=== PATIENT | male | born 1960 | race Caucasian/White ===

== ENCOUNTER → 2018-01-28 | Outpatient (CLI) | payer BC ==
[~2018-01-28] MED LIST: ALIS150T3 PO; AMI200 PO; ASP81 PO; CARVEDILOL PO; CELE-1 PO; CEP500 PO; CLO5 PO; CLON-393 PO; CLON1 PO; DIAZ-305 PO; DILT120C72 PO; DOC100 PO; ENOX60DI8 SQ; ESCI10TA8 PO; FAM20 PO; FLE100 PO; FURO-47 PO; HCTZ25; HCTZ25 PO; HYDR-2963 PO; HYDR-2966 PO; IBU600 PO; IRO150 PO; LISI-374 PO; LOR1 PO; LOSA100T68 PO; LOSA50TA72 PO; METO-231 PO; METO-253 PO; METO-259 PO; METO100T20 PO; PER PO; PERCOCET PO; POTA-1 PO; POTA20TA85 PO; SOT80 PO; SPI25; VER40 PO; WAR5 PO; WARF5TAB23 PO; [UNRECOGNIZED DRUG - OTHER]
[2018-01-28 13:45] LABS: INR 1.21
== END ==
LOC: LAB 13:22
PROVIDERS: ATTEND Internal Medicine
DX: I48.91 Unspecified atrial fibrillation (principal); I10 Essential (primary) hypertension; E87.6 Hypokalemia; I71.2 Thoracic aortic aneurysm, without rupture
CPT/HCPCS: 36415; 82040; 82247; 82310; 82374; 82435; 82565; 82947; 83735; 84075; 84132; 84155; 84295; 84450; 84460; 84520; 85610

== ENCOUNTER → 2018-04-14 | Outpatient (CLI) | payer BC ==
[~2018-04-14] MED LIST changes: +METO200T12 PO
--- NOTE | 2018-04-14 15:02 | EKG ---
FACILITY: [facility] - [place] PATIENT NAME: JUSTICE RITCHIE : [id number] MR: [id number] V: [id number] EXAM DATE: ORDERING PHYSICIAN: NADIYA SALEH TECHNOLOGIST: AROLDO /BEVERLY Test Reason : A FIB Blood Pressure : / mmHG Vent. Rate : 100 BPM Atrial Rate : 125 BPM P-R Int : 000 ms QRS Dur : 106 ms QT Int : 316 ms P-R-T Axes : 000 077 258 degrees QTc Int : 407 ms Atrial fibrillation Voltage criteria for left ventricular hypertrophy ST and T wave abnormality, consider inferolateral ischemia Abnormal ECG When compared with ECG of 12-JUN-2017 02:12, Significant changes have occurred Referred By: DELFINO Confirmed By:
== END ==
LOC: LAB 14:41
PROVIDERS: ATTEND Internal Medicine
DX: R94.31 Abnormal electrocardiogram [ECG] [EKG] (principal); I71.2 Thoracic aortic aneurysm, without rupture; I48.91 Unspecified atrial fibrillation; E87.6 Hypokalemia
CPT/HCPCS: 36415; 82040; 82247; 82310; 82374; 82435; 82565; 82947; 83735; 84075; 84132; 84155; 84295; 84450; 84460; 84520

== ENCOUNTER → 2018-05-04 | Outpatient (CLI) | payer BC ==
[2018-05-04 16:08] LABS: INR 5.19
== END ==
LOC: LAB 15:18
PROVIDERS: ATTEND Internal Medicine Clinical Cardiac Electrophysiology
DX: Z51.81 Encounter for therapeutic drug level monitoring (principal); Z79.01 Long term (current) use of anticoagulants; I48.1 Persistent atrial fibrillation
CPT/HCPCS: 36415; 85610

== ENCOUNTER → 2018-05-10 | Outpatient (CLI) | payer BC ==
[~2018-05-10] MED LIST changes: +FLUT16SP19 NS
[2018-05-10 15:16] LABS: INR 1.78
== END ==
LOC: LAB 14:23
PROVIDERS: ATTEND Internal Medicine
DX: I48.0 Paroxysmal atrial fibrillation (principal); I10 Essential (primary) hypertension; I71.8 Aortic aneurysm of unspecified site, ruptured; H91.91 Unspecified hearing loss, right ear
CPT/HCPCS: 36415; 82040; 82247; 82310; 82374; 82435; 82565; 82947; 83735; 84075; 84132; 84155; 84295; 84450; 84460; 84520; 85610

== ENCOUNTER → 2018-05-14 | Outpatient (CLI) | payer BC ==
--- NOTE | 2018-05-14 17:39 | RADIOLOGY IMAGING REPORT ---
FACILITY: [facility] - [place] PATIENT NAME: Tuan Lambert : 1960 MR: [id number] V: [id number] EXAM DATE: ORDERING PHYSICIAN: MADISON DONALDSON TECHNOLOGIST: Location: [facility] - [place], [place] Patient: Tuan Lambert : 1960 Visit/Account:[id number] Date of Sevice: 05/14/2018 EXAMINATION: Right wrist 3 views HISTORY: Right wrist/hand mass (base of thumb) COMPARISON: None. FINDINGS: Bones of the right wrist demonstrate normal alignment. No evidence of fracture or dislocation. Moderate degenerative changes at the first CMC joint at the base of the thumb, with joint space narro wing and osteophyte formation. Joint spaces are otherwise preserved. Normal mineralization. Soft tissues are radiographically unremarkable. No abnormal soft tissue calcification. IMPRESSION: 1. No acute osseous findings about the right wrist. 2. Moderate degenerative changes at the first CMC joint. 3. No radiographic findings to correlate with a reported palpable mass. If there is continued clinica l concern for a soft tissue mass, MRI could be performed for further evaluation. Report Dictated By: Emanuel Yao MD at 05/14/2018 5:29 PM Report E-Signed By: Emanuel Yao MD at 05/14/2018 5:36 PM WSN:[id number]
== END ==
LOC: RAD 16:40
PROVIDERS: ATTEND Family Medicine
DX: M24.141 Other articular cartilage disorders, right hand (principal)

== ENCOUNTER 2018-05-17 06:57 | Emergency (ER) | payer BC ==
--- NOTE | 2018-05-17 07:05 | ER Report ---
History and Physical Time Seen By MD: 07:04 HPI/ROS CHIEF COMPLAINT: Chest pain HISTORY OF PRESENT ILLNESS: Patient is a 58-year-old male who presents to the emergency department with clean of chest pain that began earlier this past week. Pain was much worse over the weekend. He has a history of aortic valve repair with his own natural tissue his aortic valve is bicuspid. He also has history of any aortic thoracic aneurysm that was repaired in 2009. Apparently IN 2017 he found out the aortic valve was leaking and he has a new thoracic aortic aneurysm. Patient has a history of paroxysmal atrial fibrillation has been converted approximately a dozen times and is also had an ablation done. He is currently on Coumadin for that. He denies any fevers or chills. He states that the pain is directly subbed sternal and radiates directly to the back. Again the pain has been persistent for approximately a week but worse over this past weekend. He called down to [facility] ([place], [place]) this morning because of the persistent pain and was told by the on-call energy technician to come to the emergency department for further evaluation. He denies any visual changes denies any fevers or chills. REVIEW OF SYSTEMS: Constitutional: No fever, no chills. Eyes: No discharge. ENT: No sore throat. Cardiovascular: Chest pain with palpitations Respiratory: No cough, no shortness of breath. Gastrointestinal: No abdominal pain, no vomiting. Genitourinary: No hematuria. Musculoskeletal: No back pain. Skin: No rashes. Neurological: No headache. Allergies: Coded Allergies: fentanyl (Verified Allergy, Mild, MAKES HIM FEEL STRANGE, 11/19/16) hydromorphone (Verified Adverse Reaction, Mild, MAKES HIM FEEL STRANGE, 11/19/16) morphine (Verified Adverse Reaction, Mild, MAKES HIM FEEL STRANGE, 11/19/16) Home Meds Active Scripts Sotalol Hcl (SOTALOL) 80 Mg Tab, 1 TAB PO BID, #1 TAB Prov:NADIYA SALEH MD 05/10/18 Metoprolol Succinate (METOPROLOL SUCCINATE) 100 Mg Tab.er.24h, 1 TAB PO BID, # 60 TAB 3 Refills Prov:NADIYA SALEH MD 04/14/18 Potassium Chloride (K-TAB) 10 Meq Tablet.er, 10 MEQ PO QDAY for potassium replacement, #30 TAB Patient will need to be seen for more refills Prov:NADIYA SALEH MD 04/08/18 Warfarin Sodium (WARFARIN SODIUM) 5 Mg Tablet, 5 MG PO QDAY for chronic anticoagulation, #30 TAB 3 Refills Prov:NADIYA SALEH MD 07/08/17 Reported Medications Hydrochlorothiazide (HYDROCHLOROTHIAZIDE) 50 Mg Tablet, 1 TAB PO QDAY, TAB PT TATKES 40 MG QDAY 07/08/17 Discontinued Scripts Fluticasone Prop 50 Mcg Ns (FLONASE 50 MCG NS) 16 Gm [place].susp, 2 SPRAYS NS QDAY, #1 BOT 3 Refills Prov:NADIYA SALEH MD 05/10/18 Past Medical/Surgical History Past medical history for paroxysmal atrial fibrillation history of cardiac ablation. History of bicuspid aortic valve history of thoracic aortic aneurysm. History of valve repair with thoracic descending aortic aneurysm repair in 2009 at the [facility]. Patient is on Coumadin. Hx Smoking: No Smoking Status: Never Smoker Hx Substance Use Disorder: No Constitutional Vital Sign - Last 24 Hours 05/17/18 05/17/18 05/17/18 05/17/18 07:01 07:19 07:20 07:49 Temp 97.6 Pulse 89 80 71 Resp 18 B/P (MAP) 175/127 170/124 (139) 170/124 (139) 161/106 (124) Pulse Ox 92 97 91 O2 Delivery Room Air Room Air Room Air 05/17/18 05/17/18 05/17/18 08:39 09:10 09:39 Pulse 94 Resp 16 B/P (MAP) 149/102 (118) 181/106 (131) 170/111 (130) Pulse Ox 92 O2 Delivery Room Air Intake and Output 05/17/18 05/17/18 05/18/18 15:00 23:00 07:00 Intake Total 600 ml Balance 600 ml Physical Exam General/Constitutional: Patient is awake, alert, nontoxic and in no acute respiratory distress. Head: Normocephalic and atraumatic. Eyes: Conjunctival clear, Pupils are equal and reactive to light. Sclera are clear and anicteric. Ears:External canals are clear. Tympanic membranes are clear with normal landmarks and light reflex. Nares: No rhinorrhea or bleeding. Turbinates are pink and moist. Oropharyngeal: Mucous membranes are moist. There is no pharyngeal erythema or exudate. There are no palatal petechiae. Uvula is midline and symmetrical. Neck: Supple, no adenopathy. Cardiovascular: Heart is irregularly, irregular but is rate controlled Pulmonary: Lungs are clear to auscultation bilaterally. There are no wheezes, rales, or rhonchi. Chest rise is symmetrical Abdomen: Soft, nontender, no guarding or peritoneal signs. Extremities: No gross deformities, No peripheral cyanosis. Able to move all 4 extremities. Neuro: Alert and oriented X3, Skin: No rashes, skin is warm dry and well perfused. Medical Decision Making Data Points Result Diagram: 05/17/18 0707 05/17/18 0707 Laboratory Hematology Test 05/17/18 07:07 05/17/18 10:06 Red Blood Count 4.58 M/uL (4.00-5.60) Mean Corpuscular Volume 91.0 fL (80.0-96.0) Mean Corpuscular Hemoglobin 32.8 pg (26.0-33.0) Mean Corpuscular Hemoglobin Concent 36.1 g/dL (32.0-36.0) Red Cell Distribution Width 13.2 % (11.5-14.5) Mean Platelet Volume 9.3 fL (7.2-11.1) Neutrophils (%) (Auto) 50.3 % (39.4-72.5) Lymphocytes (%) (Auto) 36.3 % (17.6-49.6) Monocytes (%) (Auto) 8.9 % (4.1-12.4) Eosinophils (%) (Auto) 3.6 % (0.4-6.7) Basophils (%) (Auto) 0.9 % (0.3-1.4) Nucleated RBC Relative Count (auto) 0.0 /100WBC Neutrophils # (Auto) 4.5 K/uL (2.0-7.4) Lymphocytes # (Auto) 3.2 K/uL (1.3-3.6) Monocytes # (Auto) 0.8 K/uL (0.3-1.0) Eosinophils # (Auto) 0.3 K/uL (0.0-0.5) Basophils # (Auto) 0.1 K/uL (0.0-0.1) Nucleated RBC Absolute Count (auto) 0.00 K/uL Prothrombin Time 27.0 seconds (12.0-14.4) Prothromb Time International Ratio 2.45 Activated Partial Thromboplast Time 38 seconds (23-35) Sodium Level 137 mmol/L (137-145) Potassium Level 2.8 mmol/L (3.5-5.0) Chloride Level 99 mmol/L (98-107) Carbon Dioxide Level 27 mmol/L (22-30) Blood Urea Nitrogen 21 mg/dl (9-21) Creatinine 1.10 mg/dl (0.66-1.25) Glomerular Filtration Rate Calc > 60.0 Random Glucose 87 mg/dl (75-110) Calcium Level 8.8 mg/dl (8.4-10.2) Magnesium Level 2.1 mg/dl (1.7-2.2) Total Bilirubin 1.0 mg/dl (0.2-1.3) Aspartate Amino Transf (AST/SGOT) 39 U/L (0-35) Alanine Aminotransferase (ALT/SGPT) 23 U/L (0-56) Alkaline Phosphatase 60 U/L (0-126) B-Type Natriuretic Peptide 250 pg/ml (0-100) Total Protein 7.9 g/dl (6.3-8.2) Albumin 4.1 g/dl (3.5-5.0) Troponin I < 0.012 ng/ml Chemistry Test 05/17/18 07:07 05/17/18 10:06 White Blood Count 8.9 k/uL (4.5-11.0) Red Blood Count 4.58 M/uL (4.00-5.60) Hemoglobin 15.0 g/dL (14.0-18.0) Hematocrit 41.7 % (42.0-52.0) Mean Corpuscular Volume 91.0 fL (80.0-96.0) Mean Corpuscular Hemoglobin 32.8 pg (26.0-33.0) Mean Corpuscular Hemoglobin Concent 36.1 g/dL (32.0-36.0) Red Cell Distribution Width 13.2 % (11.5-14.5) Platelet Count 141 K/uL (150-450) Mean Platelet Volume 9.3 fL (7.2-11.1) Neutrophils (%) (Auto) 50.3 % (39.4-72.5) Lymphocytes (%) (Auto) 36.3 % (17.6-49.6) Monocytes (%) (Auto) 8.9 % (4.1-12.4) Eosinophils (%) (Auto) 3.6 % (0.4-6.7) Basophils (%) (Auto) 0.9 % (0.3-1.4) Nucleated RBC Relative Count (auto) 0.0 /100WBC Neutrophils # (Auto) 4.5 K/uL (2.0-7.4) Lymphocytes # (Auto) 3.2 K/uL (1.3-3.6) Monocytes # (Auto) 0.8 K/uL (0.3-1.0) Eosinophils # (Auto) 0.3 K/uL (0.0-0.5) Basophils # (Auto) 0.1 K/uL (0.0-0.1) Nucleated RBC Absolute Count (auto) 0.00 K/uL Prothrombin Time 27.0 seconds (12.0-14.4) Prothromb Time International Ratio 2.45 Activated Partial Thromboplast Time 38 seconds (23-35) Glomerular Filtration Rate Calc > 60.0 Calcium Level 8.8 mg/dl (8.4-10.2) Magnesium Level 2.1 mg/dl (1.7-2.2) Total Bilirubin 1.0 mg/dl (0.2-1.3) Aspartate Amino Transf (AST/SGOT) 39 U/L (0-35) Alanine Aminotransferase (ALT/SGPT) 23 U/L (0-56) Alkaline Phosphatase 60 U/L (0-126) B-Type Natriuretic Peptide 250 pg/ml (0-100) Total Protein 7.9 g/dl (6.3-8.2) Albumin 4.1 g/dl (3.5-5.0) Troponin I < 0.012 ng/ml Coagulation Test 05/17/18 07:07 Prothrombin Time 27.0 seconds Prothromb Time International Ratio 2.45 Activated Partial Thromboplast Time 38 seconds EKG/Imaging EKG Interpretation EKG shows atrial fibrillation with QRS widening. The patient has left ventricular hypertrophy by voltage criteria. Patient also has a strain pattern.EKG was compared to one from 04/14/2018 which showed atrial fibrillation with similar type of strain pattern and also voltage criteria for left ventricular hypertrophy Monitor Interpretation: Atrial Fibrillation Imaging FACILITY: [facility] [place] PATIENT NAME: Tuan Lambert : 1960 MR: [id number] V: [id number] EXAM DATE: ORDERING PHYSICIAN: RENO HACKETT TECHNOLOGIST: Location: [facility] Patient: Tuan Lambert : 1960 Visit/Account:[id number] Date of Sevice: 05/17/2018 CTA CHEST WW/O CNTR (PULM ANG) HISTORY: chest pain; history of aortic aneurysm ADDITIONAL HISTORY: None. TECHNIQUE: CTA chest with intravenous contrast. Axial imaging acquired following administration of IV contrast timed for maximum opacification of the pulmonary arterial vasculature. Slab 3-D MIP reconstructed images were also created for further evaluation and interpretation. Reconstruction of the source data set includes multiplanar 2-D in the sagittal and coronal planes and 3-D reconstructed coronal slab MIP series. 3-D images were created by the technologist. Dose Lowering Technique One of the following dose optimization techniques was utilized in the performance of this exam: Automated exposure control; adjustment of the mA and/ or kV according to the patient's size; or use of an iterative reconstruction technique. Specific details can be referenced in the facility's radiology CT exam operational policy. CONTRAST: 125 mL Isovue-370 COMPARISON: November 20, 2016 FINDINGS: Lungs/pleura: Mild dependent changes in lower lung carrion Heart/vessels: The ascending thoracic aorta measures approximately 4.2 cm in AP dimension previously measuring 4.1 cm. There has been a previous sternotomy. The dilatation of the aorta is approximately 2.4 cm distal to the origins of the coronary arteries There is no evidence of aortic dissection. The descending thoracic aorta measures 2.8 cm in diameter Mediastinum/lymph nodes: There is a stable 1 x 1.6 cm AP window lymph node Visualized upper abdomen: There is an 8.3 cm cyst posterior aspect right lobe of the liver Bones/soft tissues: Postsurgical changes from incompletely imaged anterior fusion of the lower cervical spine. There are moderate spondylotic changes of the thoracic spine and post surgical changes from sternotomy Additional findings: None IMPRESSION: Acsending thoracic aorta is mildly dilated measuring approximately 4.2 cm in AP dimension previously 4.1 cm. This dilatation is approximately 2.4 cm distal to the origin of the coronary arteries. There has been a previous sternotomy suggesting prior surgical intervention. No evidence of an aortic dissection Additional chronic findings as described Report Dictated By: Madeleine Harden MD at 05/17/2018 8:28 AM Report E-Signed By: Madeleine Harden MD at 05/17/2018 8:44 AM WSN:[email or web address] FACILITY: [facility] [place] PATIENT NAME: Tuan Lambert : 1960 MR: [id number] V: [id number] EXAM DATE: ORDERING PHYSICIAN: RENO HACKETT TECHNOLOGIST: Location: [facility] Patient: Tuan Lambert : 1960 Visit/Account:[id number] Date of Sevice: 05/17/2018 CHEST SINGLE AP History: FINDINGS: Comparison studies: Chest x-ray 11/19/2016 Tubes and Lines: None. Lungs and pleura: Well aerated. No evidence of focal consolidation or pleural effusions. Mediastinum: normal. Cardiac silhouette: Evidence of previous cardiac surgery unchanged. Mild cardiac enlargement without evidence of failure. Osseous structures: Parasternal closure wires and anterior cervical fusion plate unchanged. IMPRESSION: No acute cardiopulmonary pathology Report Dictated By: Ciro Mcdonnell MD at 05/17/2018 7:50 AM Report E-Signed By: Ciro Mcdonnell MD at 05/17/2018 7:52 AM WSN:[id number] ED Course/Re-evaluation ED Course 05/17/2018 7:28:48 am plan at this time will be to perform a cardiac workup including a CT scan of the chest to look for aortic aneurysm patient was offered pain medication but he refused at this time. 05/17/2018 7:42:25 am potassium found to be 2.8 mEq per liter. Plan at this time will be to give K rider 20 mEq over 2 hours as well as 40 of oral potassium. 05/17/2018 9:08:05 am I spoke with Dr. Yuniel Morgan was a thoracic surgeon from [facility] ([place], [place]). History physical exam and case were discussed along with a CT findings of a slightly enlarging thoracic aortic aneurysm from 4.1-4.2 cm. It was felt that there is no urgent requirement for the patient to be transported her evaluated today but deftly should be followed. They would be happy to follow him in [place] should he wish to make an appointment there. I will pass on their information so he may choose to get a follow-up appointment. Patient is also requesting to be cardioverted however I feel that at this time there is no reason to perform a cardioversion emergently. Patient is not unstable he has been in atrial fibrillation minimally since 04/14/2018 from his prior EKG. Despite being therapeutic on Coumadin I feel that he should probably have a preoperative screening by cardiology as well as having echocardiogram to rule out any evidence of possible clot. I will refer him back to his energy technician that he follows with her to schedule this appointment if he desires. Otherwise the plan at this time will be to repeat a troponin at the 3 hour window. Repeat troponin is negative. We will discharge the patient home Decision to Disposition Date: May 17, 2018 Decision to Disposition Time: 10:40 Depart Departure Latest Vital Signs Vital Signs Date Time Temp Pulse Resp B/P (MAP) Pulse Ox O2 Delivery O2 Flow Rate FiO2 05/17/18 09:39 94 16 170/111 (130) 92 Room Air 05/17/18 07:01 97.6 Impression: Primary Impression: Chronic atrial fibrillation Additional Impression: Thoracic ascending aortic aneurysm Condition: Improved Disposition: HOME OR SELF-CARE Referrals: NADIYA SALEH MD (PCP) Patient Instructions: A-fib (Atrial Fibrillation) (ED), Thoracic Aortic Aneurysm (ED) Additional Instructions: The thoracic surgeon I spoke with today is listed below along with his contact information and addressed in [facility] if you choose to schedule a follow-up appointment to continue monitoring her thoracic aortic aneurysm. In either case you should make an appointment with a thoracic surgeon so they can continue to monitor your aortic aneurysm. [address] - [facility] Neurology Hours: Open, 8:00 am - 5:00 pm, 12:00 pm - 1:00 pm Website: [employer] Address: [address] [place] [id number] Problem Qualifiers RENO HACKETT MD May 17, 2018 07:05
[2018-05-17 07:38] LABS: INR 2.45
[2018-05-17] MEDS ORDERED: KCL (*) 20 MEQ/100 ML PREMIX 100 ML IV ONE (07:40)
[2018-05-17] MEDS ORDERED: POTASSIUM CHL 20 MEQ TABCR PO SCH (07:40)
[2018-05-17 07:44] LABS: PLATELET COUNT, AUTOMATED 141 K/uL (150-450)
[2018-05-17] MEDS ORDERED: NS(*) 0.9% 500 ML BAG 500 ML IV ONE (07:45)
--- NOTE | 2018-05-17 07:56 | RADIOLOGY IMAGING REPORT ---
FACILITY: [facility] [place] PATIENT NAME: Tuan Lambert : 1960 MR: [id number] V: [id number] EXAM DATE: ORDERING PHYSICIAN: RENO HACKETT TECHNOLOGIST: Location: [facility] [place] Patient: Tuan Lambert : 1960 Visit/Account:[id number] Date of Sevice: 05/17/2018 CHEST SINGLE AP History: FINDINGS: Comparison studies: Chest x-ray 11/19/2016 Tubes and Lines: None. Lungs and pleura: Well aerated. No evidence of focal consolidation or pleural effusions. Mediastinum: normal. Cardiac silhouette: Evidence of previous cardiac surgery unchanged. Mild cardiac enlargement without evidence of failure. Osseous structures: Parasternal closure wires and anterior cervical fusion plate unchanged. IMPRESSION: No acute cardiopulmonary pathology Report Dictated By: Ciro Mcdonnell MD at 05/17/2018 7:50 AM Report E-Signed By: Ciro Mcdonnell MD at 05/17/2018 7:52 AM WSN:[id number]
[2018-05-17] MEDS ORDERED: NS 0.9% 25 ML BAG 50 ML ONE (07:57)
[2018-05-17] MEDS ORDERED: IOPAMIDOL 76% 150 ML INFUS BTL 150 ML ONE (07:57)
--- NOTE | 2018-05-17 08:33 | EKG ---
FACILITY: [facility] PATIENT NAME: JUSTICE RITCHIE : [id number] MR: [id number] V: [id number] EXAM DATE: ORDERING PHYSICIAN: RENO HACKETT TECHNOLOGIST: REUNKA Tobar Reason : CHEST PAIN Blood Pressure : / mmHG Vent. Rate : 080 BPM Atrial Rate : 326 BPM P-R Int : 000 ms QRS Dur : 122 ms QT Int : 386 ms P-R-T Axes : 000 050 263 degrees QTc Int : 445 ms Atrial fibrillation Left ventricular hypertrophy with QRS widening Cannot rule out Inferior infarct , age undetermined ST and T wave abnormality, consider lateral ischemia or digitalis effect Abnormal ECG Similar to EKG done 04/14/2018 Confirmed by LOBITO DUMONT ([id number]) on 05/17/2018 9:00:13 AM Referred By: ROXANN Confirmed By:LOBITO DUMONT
--- NOTE | 2018-05-17 08:48 | RADIOLOGY IMAGING REPORT ---
FACILITY: [facility] PATIENT NAME: Tuan Lambert : 1960 MR: [id number] V: [id number] EXAM DATE: ORDERING PHYSICIAN: RENO HACKETT TECHNOLOGIST: Location: [facility] Patient: Tuan Lambert : 1960 Visit/Account:[id number] Date of Sevice: 05/17/2018 CTA CHEST WW/O CNTR (PULM ANG) HISTORY: chest pain; history of aortic aneurysm ADDITIONAL HISTORY: None. TECHNIQUE: CTA chest with intravenous contrast. Axial imaging acquired following administration of IV contrast timed for maximum opacification of the pulmonary arterial vasculature. Slab 3-D MIP chalo nstructed images were also created for further evaluation and interpretation. Reconstruction of the [facility] data set includes multiplanar 2-D in the sagittal and coronal planes and 3-D reconstructed ashwini nal slab MIP series. 3-D images were created by the technologist. Dose Lowering Technique One of the following dose optimization techniques was utilized in the performance of this exam: Autom ated exposure control; adjustment of the mA and/or kV according to the patient's size; or use of an i terative reconstruction technique. Specific details can be referenced in the facility's radiology C T exam operational policy. CONTRAST: 125 mL Isovue-370 COMPARISON: November 20, 2016 FINDINGS: Lungs/pleura: Mild dependent changes in lower lung carrion Heart/vessels: The ascending thoracic aorta measures approximately 4.2 cm in AP dimension previously measuring 4.1 cm. There has been a previous sternotomy. The dilatation of the aorta is approximate ly 2.4 cm distal to the origins of the coronary arteries There is no evidence of aortic dissection. The descending thoracic aorta measures 2.8 cm in diameter Mediastinum/lymph nodes: There is a stable 1 x 1.6 cm AP window lymph node Visualized upper abdomen: There is an 8.3 cm cyst posterior aspect right lobe of the liver Bones/soft tissues: Postsurgical changes from incompletely imaged anterior fusion of the lower cervi christina spine. There are moderate spondylotic changes of the thoracic spine and post surgical changes fr om sternotomy Additional findings: None IMPRESSION: Acsending thoracic aorta is mildly dilated measuring approximately 4.2 cm in AP dimension previously 4.1 cm. This dilatation is approximately 2.4 cm distal to the origin of the coronary arteries. Ther e has been a previous sternotomy suggesting prior surgical intervention. No evidence of an aortic di ssection Additional chronic findings as described Report Dictated By: Madeleine Harden MD at 05/17/2018 8:28 AM Report E-Signed By: Madeleine Harden MD at 05/17/2018 8:44 AM JOELN:[email or web address]
[2018-05-17 10:44] VITALS: BP 165/112
== END 2018-05-17 10:45 | disposition home or self-care (01) ==
LOC: ER 07:03
DX: I71.2 Thoracic aortic aneurysm, without rupture (principal); I48.2 Chronic atrial fibrillation; Z79.01 Long term (current) use of anticoagulants
CPT/HCPCS: 36415; 71045; 71275; 83735; 83880; 84484; 85025; 85610; 85730; 93005; 96365; 96366; 99285; J3480; J7040; Q9967; 82040; 82247; 82310; 82374; 82435; 82565; 82947; 84075; 84132; 84155; 84295; 84450; 84460; 84520

== ENCOUNTER → 2018-05-20 | Outpatient (CLI) | payer BC ==
[2018-05-20 10:56] LABS: INR 2.29
== END ==
LOC: LAB 10:25
PROVIDERS: ATTEND Internal Medicine
DX: I48.2 Chronic atrial fibrillation (principal); I10 Essential (primary) hypertension
CPT/HCPCS: 36415; 82310; 82374; 82435; 82565; 82947; 84132; 84295; 84520; 85610

== ENCOUNTER → 2018-05-20 | Outpatient (CLI) | payer BC ==
--- NOTE | 2018-05-20 13:28 | RADIOLOGY IMAGING REPORT ---
FACILITY: [facility] [place] PATIENT NAME: Tuan Lambert : 1960 MR: [id number] V: [id number] EXAM DATE: ORDERING PHYSICIAN: CHRISTINE SANFORD TECHNOLOGIST: Location: [facility] [place] Patient: Tuan Lambert : 1960 Visit/Account:[id number] Date of Sevice: 05/20/2018 EXAMINATION: Single Isotope SPECT Imaging with Exercise and Gated SPECT Imaging DATE OF EXAMINATION: 05/20/2018 DATE OF INTERPRETATION: 05/20/2018 REQUESTING PHYSICIAN: CHRISTINE SANFORD INDICATION: The patient is a 58-year-old male evaluated for atrial fibrillation/chest pain. PROCEDURE: After informed consent the patient received an intravenous injection of 12.2 mCi of Tc-9 9m sestamibi followed at the appropriate time interval by rest imaging. The patient then exercised a ccording to the standard Jaime protocol for 8:04 minutes achieving 9 METS. Resting heart rate was 88 bpm with a peak heart rate of 151 bpm which is 93 % of maximal predicted heart rate for age. Blood pressure at rest was 139 / 102; blood pressure during exercise was 147 / 97. There was no chest valerie n during exercise. Exercise was discontinued because of fatigue. Baseline EKG demonstrates criteria for left ventricular hypertrophy with abnormal ST segments in the anterolateral leads. There were w orsening ST segment depression with stress but nondiagnostic given baseline abnormalities Approxima tely one minute and 30 seconds prior to the termination of exercise, the patient received an intraven ous injection of 29.6 mCi of Tc-99m sestamibi followed by stress imaging. RAW DATA: Examination of the summed raw data revealed a good quality study. MYOCARDIAL PERFUSION: The tomographic images demonstrate small, mild defect in the inferobasal wall consistent with prior RCA infarct without reversible ischemia. GATED IMAGES: The gated images demonstrate septal wall hypokinesis, ejection fraction 45% IMPRESSION: 1. Good quality study 2. Abnormal myocardial perfusion scan. Imaging suggests prior infarct in the inferobasal wall consis tent with RCA territory distribution but no reversible ischemia. 3. Mildly abnormal LV systolic function; LVEF 45%. Septal wall hypokinesis. 4. Based on the results of this exam, the patient appears to be at low risk for future cardiovascular events but remains intermediate risk due to suggestion of prior CAD. Report Dictated By: Fernando Garcia at 05/20/2018 1:14 PM Report E-Signed By: Fernando Garcia at 05/20/2018 1:23 PM WSN:[id number]
== END ==
LOC: NUC 02:56
PROVIDERS: ATTEND Internal Medicine Clinical Cardiac Electrophysiology
DX: Z51.81 Encounter for therapeutic drug level monitoring (principal); Z79.01 Long term (current) use of anticoagulants; I48.1 Persistent atrial fibrillation
CPT/HCPCS: 78452; 93017; A9500

== ENCOUNTER → 2018-06-01 | Outpatient (CLI) | payer BC ==
[2018-06-01 12:01] LABS: INR 1.23
== END ==
LOC: LAB 11:28
PROVIDERS: ATTEND Internal Medicine Clinical Cardiac Electrophysiology
DX: Z51.81 Encounter for therapeutic drug level monitoring (principal); Z79.01 Long term (current) use of anticoagulants; I48.1 Persistent atrial fibrillation; E87.6 Hypokalemia
CPT/HCPCS: 85610

== ENCOUNTER → 2018-06-01 | Outpatient (CLI) | payer BC | LOC: LAB 11:25 | PROVIDERS: ATTEND Internal Medicine | DX: I71.2 Thoracic aortic aneurysm, without rupture (principal); I48.91 Unspecified atrial fibrillation; E87.6 Hypokalemia | CPT/HCPCS: 36415; 82040; 82247; 82310; 82374; 82435; 82565; 82947; 83735; 84075; 84132; 84155; 84295; 84450; 84460; 84520 ==

== ENCOUNTER → 2018-06-08 | Outpatient (CLI) | payer BC ==
[2018-06-08 16:16] LABS: INR 4.34
== END ==
LOC: LAB 15:50
PROVIDERS: ATTEND Internal Medicine Clinical Cardiac Electrophysiology
DX: Z51.81 Encounter for therapeutic drug level monitoring (principal); Z79.01 Long term (current) use of anticoagulants; I48.1 Persistent atrial fibrillation
CPT/HCPCS: 36415; 85610

== ENCOUNTER → 2018-06-15 | Outpatient (CLI) | payer BC | LOC: LAB 16:06 | PROVIDERS: ATTEND Internal Medicine | DX: I48.2 Chronic atrial fibrillation (principal); E87.6 Hypokalemia | CPT/HCPCS: 36415; 82310; 82374; 82435; 82565; 82947; 84132; 84295; 84520 ==

== ENCOUNTER → 2018-06-15 | Outpatient (CLI) | payer BC ==
[2018-06-15 16:40] LABS: INR 3.01
== END ==
LOC: LAB 16:06
PROVIDERS: ATTEND Internal Medicine Clinical Cardiac Electrophysiology
DX: Z51.81 Encounter for therapeutic drug level monitoring (principal); Z79.01 Long term (current) use of anticoagulants; I48.1 Persistent atrial fibrillation
CPT/HCPCS: 36415; 85610

== ENCOUNTER → 2018-12-15 | Outpatient (REF) ==
[~2018-12-15] MED LIST changes: -LOSA50TA72 PO; +LOSA50TA80 PO
--- NOTE | 2018-12-15 16:42 | EKG ---
FACILITY: [facility] [place] PATIENT NAME: JUSTICE RITCHIE : [id number] MR: [id number]: [id number] EXAM DATE: ORDERING PHYSICIAN: LAINA JC TECHNOLOGIST: Test Reason : Blood Pressure : / mmHG Vent. Rate : 091 BPM Atrial Rate : 091 BPM P-R Int : 230 ms QRS Dur : 116 ms QT Int : 378 ms P-R-T Axes : 109 083 269 degrees QTc Int : 464 ms Sinus rhythm with 1st degree AV block Incomplete LBBB Diffuse ST-T abnormalities Left ventricular hypertrophy with QRS widening and repolarization abnormality Abnormal ECG ST-T and QRS abnormalities are similar to previous EKG Confirmed by LAZ BETANCOURT ([id number] on 12/15/2018 7:47:25 PM Referred By: Confirmed By:LAZ BETANCOURT
== END ==
LOC: RESP 16:29
PROVIDERS: ATTEND Internal Medicine
DX: I44.0 Atrioventricular block, first degree (principal); I44.7 Left bundle-branch block, unspecified; R94.31 Abnormal electrocardiogram [ECG] [EKG]
CPT/HCPCS: 93005